=== PATIENT | male | born 1970 | race Caucasian/White ===

== ENCOUNTER 2020-03-23 15:17 | Emergency (ER) | payer OTHER, SELFPAY ==
--- NOTE | ~2020-03-23 | XR_ITS ---
EXAMINATION: XR wrist LT min 3V EXAM DATE: 03/23/2020 16:22 INDICATION: TECHNIQUE: Left wrist frontal, frontal with ulnar deviation, oblique and lateral projections obtained and reviewed. There is no prior study for comparison. FINDINGS: Left wrist scapholunate joint space is maintained. There is acute closed posttraumatic fra cture of the left radial distal metaphysis into the distal radial ulnar and radiocarpal joints. Posit ion, alignment is near-anatomic. There is overlying soft tissue swelling. The ulnar styloid appears intact and carpal bones are unremarkable. IMPRESSION: Left radial distal metaphyseal acute intra-articular fractures. Reviewed, dictated and finalized at location A. T[employer] TURNER
--- NOTE | ~2020-03-23 | XR_ITS ---
EXAMINATION: XR elbow LT min 3V EXAM DATE: 03/23/2020 16:21 INDICATION: Left elbow pain. Fall. Initial encounter. TECHNIQUE: Left elbow frontal, lateral with flexion, and oblique projections obtained and reviewed. There is no prior study for comparison. FINDINGS: Left elbow anterior humeral line intact. There are no acute fractures or dislocations barrett ntified. There is no subcutaneous gas. The soft tissue is unremarkable. There are no radiopaque f oreign bodies. IMPRESSION: 1. Unremarkable left elbow exam. Reviewed, dictated and finalized at location A. [employer]
--- NOTE | ~2020-03-23 | XR_ITS ---
EXAMINATION: XR shoulder LT min 2V EXAM DATE: 03/23/2020 16:20 INDICATION: Low left shoulder pain after fall. Initial encounter. TECHNIQUE: The following left shoulder projections obtained: frontal projection with internal rotatio n, frontal projection with external rotation, Grashey, and scapular Y view (4+ views). There is no p rior study for comparison. FINDINGS: No evidence of left shoulder rotator cuff calcific tendinosis. There is mild glenohumera l, mild to moderate acromioclavicular joint primary osteoarthritis. There are no acute fractures or d islocations identified. There is no subcutaneous gas. The soft tissue is unremarkable. There are no radiopaque foreign bodies. IMPRESSION: 1. Left shoulder exam without acute osseous findings. Reviewed, dictated and finalized at location A. [employer]
[2020-03-23 15:49] VITALS: BP 163/109; PULSE 72; TEMP 36.9; O2SAT 98
--- NOTE | 2020-03-23 15:49 | ED.GENADULT ---
HPI - General Adult General Chief complaint: Fall Stated complaint: Left wrist /hand hurt /eye is hurting Source: patient Mode of arrival: ambulatory Limitations: no limitations History of Present Illness HPI narrative: Reyes is a previously healthy 49M that fell approximately 6ft off a ladder when it broke. He caught himself on his left arm. He had pain immediately. He did not hit his head or neck. No neck pain or LOC. He reports 4/10 pain. He refused pain meds at this time. Related Data Home Medications Medication Instructions Recorded Confirmed montelukast 10 mg PO DAILY 03/23/20 03/23/20 Allergies Allergy/AdvReac Type Severity Reaction Status Date / Time No Known Allergies Allergy Verified 03/23/20 15:47 Review of Systems Constitutional: Constitutional: Reports no additional constitutional complaints Eyes: Eyes: Reports no additional eye complaints ENT: Reports system reviewed and no additional complaints, except as documented Cardiovascular: Cardiovascular: Reports no additional cardiovascular complaints Respiratory: Respiratory: Reports no additional respiratory complaints Gastrointestinal: Gastrointestinal: Reports no additional gastrointestinal complaints Genitourinary: Genitourinary: Reports no additional male genitourinary complaints Musculoskeletal: Musculoskeletal: Reports as per HPI Integumentary/Breasts: Skin/Breast: Reports system reviewed and no additional complaints, except as docu Neurologic: Reports system reviewed and no additional complaints, except as documented Psychiatric: Psychiatric: Reports no additional psychiatric complaints Endocrine: Endocrine: Reports no additional endocrine complaints Hematologic/Lymphatic: Hematologic/Lymphatic: Reports no additional hematologic/lymphatic complaints Allergic/Immunologic: Allergic/Immunologic: Reports no additional allergic/immunologic complaints Exam Const: General: no acute distress and alert Orientation/consciousness: patient oriented x3 Limitations: No altered mental status HENMT: Other: normocephalic, atraumatic Eyes: Conjunctivae: conjunctivae normal Pupils: Equal, round and reactive pupils present Neck: Other: No midline tenderness, able to touch chin to each shoulder bilaterally. Full active ROM without pain. Chest: Chest palpation & inspection: normal inspection of the chest Resp: Effort & Inspection: normal respiratory effort Cardio: Rate: regular rate Back/Spine/Pelvis: Other: No midline tenderness Skin: General skin exam: normal color Rashes: no rashes Neuro: General: patient oriented x3 and moves all extremities Extrem: Other: Dorsal deformity of the left wrist. TTP of the left elbow and shoulder. Psych: Mental Status: mental status grossly normal Course Course Emergency Course: Reyes was evaluated. Ordered radiographs as below. Still refusing pain meds. EXAMINATION: XR shoulder LT min 2V EXAM DATE: 03/23/2020 16:20 INDICATION: Low left shoulder pain after fall. Initial encounter. TECHNIQUE: The following left shoulder projections obtained: frontal projection with internal rotation, frontal projection with external rotation, Grashey, and scapular Y view (4+ views). There is no prior study for comparison. FINDINGS: No evidence of left shoulder rotator cuff calcific tendinosis. 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 There are no acute fractures or dislocations identified. There is no subcutaneous gas. The soft tissue is unremarkable. There are no radiopaque foreign bodies. IMPRESSION: 1. Left shoulder exam without acute osseous findings. EXAMINATION: XR elbow LT min 3V EXAM DATE: 03/23/2020 16:21 INDICATION: Left elbow pain. Fall. Initial encounter. TECHNIQUE: Left elbow frontal, lateral with flexion, and oblique projections obtained and reviewed. There is no prior study for comparison. FINDINGS: Left elbow anterior humeral line intact. T
[2020-03-23 17:30] VITALS: BP 133/88; PULSE 70; RESP 18; O2SAT 99
== END 2020-03-23 17:38 | disposition home or self-care (01) ==
PROVIDERS: Emergency Provider Family Medicine; PCP Family Medicine
DX: S62.102A Fracture of unspecified carpal bone, left wrist, initial encounter for closed fracture (principal); W11.XXXA Fall on and from ladder, initial encounter
CPT/HCPCS: 29125; 73030; 73080; 73110; 99283; 99284; A4565